=== PATIENT | male | born 1980 | race Caucasian/White ===

== ENCOUNTER 2021-03-04 10:02 | Emergency (ER) | payer MEDICAID, SELFPAY ==
[2021-03-04 10:03] VITALS: BP 132/100; PULSE 68; RESP 18; TEMP 36.7; O2SAT 98; BMI 25.1
--- NOTE | 2021-03-04 10:09 | RAD_ITS ---
STUDY: X-RAY - RIGHT SHOULDER REASON FOR EXAM: Male, 40 years old. fall pain to shoulder TECHNIQUE: 3 view(s) of the shoulder. COMPARISON: None. FINDINGS: Normal glenohumeral articulation. There is widening of the AC joint, with cephalad displacement of the clavicle (and widening of the coracoclavicular space), consistent with a Type III acromioclavicular joint separation. Normal acromion. Normal humeral head and visualized proximal humerus. The soft tissue structures are unremarkable. Normal visualized pulmonary apex. RAD/Shoulder min 2 Views IMPRESSION: Type III acromioclavicular joint separation. Electronically Signed: Peter Lan MD ([place]) at 10:31 EST , Service support ,
--- NOTE | 2021-03-04 11:31 | EDS_ITS ---
HPI History of Present Illness Chief Complaint: Upper Extremity Injury Informant: patient Narrative Narrative: Patient had a mechanical trip and fall this morning. He hit his right shoulder and has pain on the top of his shoulder. He thinks it may be dislocated. He felt a pop. He has no headache. He has no chest pain. He has no trouble breathing. He does not have numbness tingling or weakness. He is right- handed. [facility] Medical History History of head injury History of lower leg fracture Home Medications naproxen 500 mg PO BID #14 tab 03/04/21 [Rx Last Taken Unknown] Allergy/AdvReac Type Severity Reaction Status Date / Time No Known Allergies Allergy Verified 03/04/21 10:05 Surgical History no surgical history Social History Smoking Status: Current every day smoker tobacco type: cigarettes ROS ROS ED Constitutional Constitutional ED: Denies fever(s) Eyes Eyes: Denies blurry vision Cardiovascular Cardiovascular: Denies chest pain Respiratory/Chest Respiratory/Chest: Denies cough or dyspnea Gastrointestinal Gastrointestinal: Denies nausea or vomiting Musculoskeletal Musculoskeletal: Reports other Details: See history of present illness. ; Denies back pain or neck pain Neurologic Neurologic: Denies headache(s), paresthesias or weakness Hematologic/Lymphatic Hematologic/Lymphatic: Denies easy bleeding or easy bruising EXAM Physical Exam Const Vital Signs: 03/04/21 10:03 Temperature 98.1 F Temperature Source Temporal Pulse Rate 68 Respiratory Rate 18 Blood Pressure 132/100 H Blood Pressure Mean 110 Pulse Ox 98 Positive well nourished and well developed General Appearance ED: well developed and NAD HEENT normocephalic and atraumatic; Negative for tenderness Eyes EOMs intact bilaterally Neck full ROM and supple General: Negative for tenderness Chest Wall inspection of chest normal Resp normal respiratory effort and clear to auscultation bilaterally Effort and Inspection: Negative for pain with movement Cardio regular rate and regular rhythm GI non-tender Palpation: soft Back/Spine no CVA tenderness Extremity Extremity Narrative: Patient does have some slight swelling over his AC on the right. I do not see a deformity. There is no crepitance. Range of motion of the shoulder is actually preserved but he does have more pain with overhead motion. Distal pulses and sensation and fence setter strength are all intact. Neuro oriented x3 Sensorium / Orientation: alert Psych mental status grossly normal Skin Lesions: no lesions Rashes: no rashes Trauma: Negative for abrasion or laceration MDM MDM MDM Narrative Medical decision making narrative: X-ray shows AC separation which is consistent with her clinical exam. No fracture. No shoulder dislocation. I explained to the patient we will place him in a sling. But he should only use this for about 3 days. I explained and demonstrated range of motion that should be done at least 5 or 6 times a day even while using the sling for the first few days. He is at risk for frozen shoulder although the shoulder itself is not injured. We will give him Naprosyn. I will give number for orthopedics for follow-up. Radiography Diagnostic Testing: Clinical Impression(s) from Imaging Studies Shoulder X-Ray 03/04/21 10:09 IMPRESSION: Type III acromioclavicular joint separation. Electronically Signed: Peter Lan MD ([place]) at 10:31 EST , Service support , Discharge Plan Triage Chief Complaint: Upper Extremity Injury ED Provider: Rich Doherty Dx/Rx/DC Orders Clinical Impression: Separation of right acromioclavicular joint, Fall from slip, trip, or stumble Instructions: Treatment for Shoulder Separation Prescriptions: New naproxen 500 MG tablet 500 mg PO BID Qty: 14 RF: 0 Primary Care Provider: Care Physician,No Primary Referrals: Clifford Smith DO [STAFF PHYSICIAN] - 1-2 Weeks Care Physician,No Primary [Primary Care Provider] - Disposition Disposition: Home, Self Care
--- NOTE | 2021-03-04 11:38 | CM.ED ---
SW Note Referral Source: Case Find Referral Reason: No Primary Care Physician (PCP) SW reviewed chart and noted that patient has no PCP. SW provided patient with list of [facility] and [facility] Physician List for reference. No other issues or concerns voiced at this time. SW remains available for any additional needs. Plan: Provided patient with PCP information Gabbie STEPHENSON
[2021-03-04 11:59] VITALS: BP 130/84; PULSE 70; RESP 16; O2SAT 99
== END 2021-03-04 12:00 | disposition home or self-care (01) ==
PROVIDERS: Emergency Provider Emergency Medicine
DX: S43.101A Unspecified dislocation of right acromioclavicular joint, initial encounter (principal); W01.0XXA Fall on same level from slipping, tripping and stumbling without subsequent striking against object, initial encounter; Y93.9 Activity, unspecified; Y92.9 Unspecified place or not applicable; Y99.9 Unspecified external cause status; F17.210 Nicotine dependence, cigarettes, uncomplicated
CPT/HCPCS: 73030; 99283

== ENCOUNTER 2021-06-30 13:44 | Emergency (ER) | payer MEDICAID, SELFPAY ==
[2021-06-30 13:46] VITALS: BP 116/72; PULSE 89; RESP 16; TEMP 36.9; O2SAT 97; BMI 27.3
--- NOTE | 2021-06-30 14:13 | EX.ED.UPPERE ---
HPI History of Present Illness Chief Complaint: Laceration Detail of Chief Complaint: Right wrist Informant: patient Occured/Mechanism Mechanism/Context: Yes injury Onset/Context/Timing Onset: Today and Hours Context: Sudden Onset Timing: Continuous Quality of Pain: Sharp Current Severity: Mild Maximum Severity: Mild Associated Symptoms Associated Symptoms: Negative for Parasthesia, Weakness and Loss of Funtion Narrative Narrative: 41-year-old male no seen past medical history denies being on any medications currently. Unsure of his last tetanus shot. States that he was trying to open a door and he pushed his hand through the glass window on the door causing a laceration. He was brought in by squad. He tells me this was not intentional he was not trying to injure himself. He denies any other injuries. Tetanus Immunization: Unknown Prior similar symptoms: No Recent Illness/Hospitalization: No PFSH PFSH Medical History History of head injury History of lower leg fracture Home Medications naproxen 500 mg PO BID #14 tab 03/04/21 [Rx Last Taken Unknown] Allergy/AdvReac Type Severity Reaction Status Date / Time No Known Allergies Allergy Verified 03/04/21 10:05 Social History Smoking Status: Current every day smoker tobacco type: cigarettes ROS ROS ED ROS Narrative Denies recent illness. Review of Systems ROS Unobtainable: Denies due to encephalopathy Constitutional Constitutional ED: Denies fever(s) Eyes Eyes: Denies change in vision ENT ENT ED: Denies ear pain Cardiovascular Cardiovascular: Denies chest pain Respiratory/Chest Respiratory/Chest: Denies dyspnea Gastrointestinal Gastrointestinal: Denies abdominal pain Genitourinary Genitourinary ED: Denies dysuria Musculoskeletal Musculoskeletal: Denies myalgias Integumentary Denies rash Neurologic Neurologic: Denies headache(s) Psychiatric Psychiatric: Denies depression Endocrine Endocrinology: Denies polyuria Hematologic/Lymphatic Hematologic/Lymphatic: Denies easy bruising Allergic/Immunologic Allergic/Immunologic ED: Denies urticaria EXAM Physical Exam Narrative Exam Narrative: 41-year-old male no acute distress vital signs stable afebrile. H EENT exam unremarkable. Lungs are clear. Heart regular rhythm no murmur rate about 90. Abdomen soft nontender. Moving all 4 extremities. Neurovascularly intact. He has a dressing wrapped tightly on his right wrist. He has full range of motion motion to all digits of the right hand with flexion extension. Normal cap refill intact sensation. I have not taken the dressing down as of yet. Const Vital Signs: 06/30/21 13:46 Temperature 98.5 F Temperature Source Temporal Pulse Rate 89 Respiratory Rate 16 Blood Pressure 116/72 Blood Pressure Mean 86 Pulse Ox 97 Oxygen Delivery Method Room Air Positive well nourished and well developed; Negative for obese, cachectic, contractures or unkempt General Appearance ED: well developed and NAD; Negative for unkempt, cachectic, contractures, cyanotic or diaphoretic Nutritional Appearance: Negative for cachectic or obese HEENT Reports moist mucous membranes normocephalic and atraumatic; Negative for trauma or tenderness Eyes PERRL and EOMs intact bilaterally Neck full ROM and supple General: Negative for tenderness Chest Wall inspection of chest normal and palpation of chest normal Resp normal respiratory effort and clear to auscultation bilaterally Effort and Inspection: Negative for pain with movement Auscultation: Negative for rales, rhonchi or wheezes Cardio regular rate, regular rhythm, S1 normal heart sound, S2 normal heart sound and no murmurs GI non-tender, non-distended and no masses Auscultation: normoactive bowel sounds Palpation: soft; Negative for tender or guarding Back/Spine no CVA tenderness General Back: Negative for CVA tenderness Cervical Spine: Negative for cervical spine tenderness Thoracic Spine / Upper Back: Negative for thoracic spinal tenderness Extremity Extremity Narrative: Right forearm lacerations x3. The first laceration is horizontal across the palm arm just before the wrist is approximately 5 cm. There is a small laceration medial to that is approximately 1-1/2 cm. And there is a proximal laceration that gapes on the distal third of the forearm all 3 need repaired. He has full flexion-extension all digits and hand. Normal touch sensation and cap refill. He has normal radial and ulnar pulse Jonelle lacerations. All lacerations were evaluated I do not feel or see any glass. I do not see any tendon, nerve, arterial injuries. No foreign bodies. Neuro oriented x3, moves all extremities, no focal motor deficits and no sensory deficits noted Sensorium / Orientation: alert, oriented to person, oriented to place and oriented to time; Negative for orientation impaired, lethargic or stuporous Motor Exam: strength 5/5 throughout Psych mental status grossly normal Appearance: Negative for unkempt Mood & Affect: Negative for depressed or tearful Skin Lesions: no lesions Rashes: no rashes Trauma: laceration; Negative for no lacerations or abrasions or abrasion MDM MDM MDM Narrative Medical decision making narrative: 41-year-old male right wrist laceration after reportedly putting his hand through a glass window on a door. Tetanus will be updated. I will take down the dressing and assess the wound. From the way the patient explains that it does not sound like pulsatile bleeding. Area was cleaned. Shur-Clens. Washed and irrigated. Closed using Ethilon times a total of 13 stitches. After presents here trained nurses cleaned all the wounds. He had some superficial lacerations over the dorsum of his right index finger. Again no foreign body noted. They did not need to be repaired. They can be cleaned and dressed. All wounds to be cleaned and dressed. He was instructed on suture care and removal. Patient doing well at 4:27 PM. Procedures Lacerations Laceration #1: Length: 1.97 in Depth: Sub Q Shape: Linear Prep: Sterile Conditions and Shure-Clens Laceration repair: Irrigated, Lidocaine, Local and Skin sutures Number of Sutures/[place]: 6 Suture Information: Ethilon, Simple and 4-0 Comment: Cleaned with Shur-Clens. Washed with saline irrigated with saline. Explored. Local anesthetized with lidocaine. Closed using six 4-0 Ethilon sutures. Proper hemostasis wound closure is obtained. Patient tolerated procedure well. Laceration #2: Length: 0.79 in Depth: Skin Shape: Linear Prep: Sterile Conditions and Shure-Clens Laceration repair: Irrigated, Lidocaine and Local Number of Sutures/Gautam: 2 Suture Information: 4-0 Comment: 1-1/2 to 2 cm laceration. Closed with two 4-0 Ethilon sutures. Proper hemostasis wound closure obtained. Evaluated. No foreign body noted. Laceration #3: Length: 1.97 in Depth: Sub Q Shape: Linear Prep: Sterile Conditions and Shure-Clens Laceration repair: Irrigated, Lidocaine, Local and Skin sutures Number of Sutures/[place]: 5 Suture Information: Ethilon and 4-0 Discharge Plan Triage Chief Complaint: Laceration ED Provider: Robert Quezada Dx/Rx/DC Orders Clinical Impression: Laceration of right forearm Instructions: ED Laceration: All Closures Prescriptions: No Action naproxen 500 MG tablet 500 mg PO BID Qty: 14 RF: 0 Primary Care Provider: Care Physician,No Primary Referrals: Carlos Lynn MD [STAFF PHYSICIAN] - 10 Day for suture removal Care Physician,No Primary [Primary Care Provider] - Activity Restrictions/Additional Instructions: Keep all 3 lacerations clean. Clean daily with soap and water or peroxide and water. Dry well. Very carefully cleaned them and dried them. Do not scrub. Roughly or you can tear them open. Apply antibiotic ointment daily. Suture removal in 10 days. Watch for any signs of infection such as pus, redness, fever or streaks is seen return. Watch for any signs of heavy bleeding such as swelling or increased pain if seen return. Ice and elevate. Tylenol and Motrin for pain. . Tetanus is updated and good for 10 years. Disposition Disposition: Home, Self Care
[2021-06-30] MEDS: Diphth,Pertuss(Acell),Tet Vac 0.5 ML Vial IM (14:32)
[2021-06-30] MEDS: Lidocaine 1% (30 ml sdv) 30 ML Vial INFILT (16:34)
== END 2021-06-30 16:42 | disposition home or self-care (01) ==
PROVIDERS: Emergency Provider Emergency Medicine; Visit Provider Emergency Medicine
DX: S51.811A Laceration without foreign body of right forearm, initial encounter (principal); S61.210A Laceration without foreign body of right index finger without damage to nail, initial encounter; W25.XXXA Contact with sharp glass, initial encounter; F17.210 Nicotine dependence, cigarettes, uncomplicated; Z23 Encounter for immunization
CPT/HCPCS: 12004; 90471; 90715; 99284

== ENCOUNTER 2021-07-19 16:10 | Emergency (ER) | payer MEDICAID, SELFPAY ==
[2021-07-19 16:11] VITALS: BP 127/78; PULSE 110; RESP 18; TEMP 36.1; O2SAT 95; BMI 25.1
--- NOTE | 2021-07-19 16:24 | EX.ED.DYSGE1 ---
HPI <CARLOTA Tejeda - Last Filed: 07/19/21 16:36> History of Present Illness Chief Complaint: Suture Remv Narrative Narrative: Patient presents for suture removal. He had 3 separate lacerations with a total of 13 sutures placed 19 days ago. They have been healing well without issue. PFSH <CARLOTA Tejeda - Last Filed: 07/19/21 16:36> [facility] Medical History History of head injury History of lower leg fracture Allergy/AdvReac Type Severity Reaction Status Date / Time No Known Allergies Allergy Verified 07/19/21 16:12 Social History Smoking Status: Current every day smoker tobacco type: cigarettes ROS <CARLOTA Tejeda - Last Filed: 07/19/21 16:36> ROS ED ROS Narrative Constitutional: Negative for fever, chills, malaise. Eyes: Negative for visual change. ENT: Negative for sore throat, ear pain, rhinorrhea. CVS: Negative for palpitations, chest pain, syncope. Respiratory: Negative for shortness of breath, cough. GI: Negative for abdominal pain, nausea, vomiting. : Negative for dysuria, hematuria or frequency. Neuro: Negative for motor/sensory dysfunction. Skin: + For laceration. Negative for rash, abscess. Musc: Negative for joint pain, swelling, trauma. Heme: Negative for easy bruising, bleeding, lymphadenopathy. EXAM <CARLOTA Tejeda - Last Filed: 07/19/21 16:36> Physical Exam Narrative Exam Narrative: CONST: Patient sitting in no acute distress. EYES: Normal inspection. ENT: Normal inspection, moist mucous membranes. NECK: Normal inspection. RESP: No respiratory distress, CTAB. CVS: Regular rate and rhythm, no murmur, no gallop. SKIN: Color normal, no rash, warm, dry, intact. EXTREMITIES: 3 lacerations on right volar forearm are healing well without dehiscence or any sign of infection. 2+ radial pulse. NEURO: Oriented x4. PSYCH: Normal affect. Const Vital Signs: 07/19/21 16:11 07/19/21 16:41 Temperature 97 F L Temperature Source Temporal Pulse Rate 110 H Respiratory Rate 18 18 Blood Pressure 127/78 H Blood Pressure Mean 94 Pulse Ox 95 Oxygen Delivery Method Room Air <Dr. Mis Hernandez MD - Last Filed: 07/19/21 18:42> Physical Exam Const Vital Signs: 07/19/21 16:11 07/19/21 16:41 Temperature 97 F L Temperature Source Temporal Pulse Rate 110 H Respiratory Rate 18 18 Blood Pressure 127/78 H Blood Pressure Mean 94 Pulse Ox 95 Oxygen Delivery Method Room Air MDM <CARLOTA Tejeda - Last Filed: 07/19/21 16:36> [facility] Narrative Medical decision making narrative: Patient presents for suture removal right forearm. He has 3 lacerations on the right volar forearm that are healing well with no sign of infection. Extremity neurovascularly intact. A total of 13 sutures were removed and we discussed continued wound care and he was discharged in stable condition. 1. Suture removal, right arm <Dr. Mis Hernandez MD - Last Filed: 07/19/21 18:42> [facility] Treatment and Re-Evaluation Narrative: Patient seen and evaluated with CHAMP. I personally interviewed and examined the patient. I was involved in all aspects of patient's orders, interpretation of results, and treatment. Patient presents for removal of sutures. He had sutures placed in his right forearm 19 days ago. He denies any problems with healing. Patient sitting upright in bed no acute distress. Alert and talkative. Right upper extremity examination reveals healing lacerations. No sign of secondary infection. Strong distal pulses with normal cap refill. Normal strength and range of motion. Sutures removed without difficulty. Wound care discussed with patient. Return instructions given. Discharge Plan Triage Chief Complaint: Suture Remv ED Midlevel Provider: Cinda Reilly ED Provider: Mis Hernandez Dx/Rx/DC Orders Clinical Impression: Encounter for removal of sutures Instructions: ED Stitches/Staple Removal No ... Primary Care Provider: Care Physician,No Primary Referrals: Care Physician,No Primary [Primary Care Provider] - Disposition Disposition: Home, Self Care Discharge Date/Time: 07/19/21 16:42
[2021-07-19 16:41] VITALS: RESP 18
== END 2021-07-19 16:42 | disposition home or self-care (01) ==
PROVIDERS: Emergency Provider Emergency Medicine; Visit Provider Emergency Medicine
DX: S51.811D Laceration without foreign body of right forearm, subsequent encounter (principal); X58.XXXD Exposure to other specified factors, subsequent encounter; F17.210 Nicotine dependence, cigarettes, uncomplicated
CPT/HCPCS: 99282